=== PATIENT | male | born 1945 | race Caucasian/White ===

== ENCOUNTER 2018-11-29 12:55 | Emergency (ER) | payer SELFPAY ==
[~2018-11-29] VITALS: Ht 165.1 cm; Wt 59.9 kg
[2018-11-29 13:10] VITALS: BP 112/49
--- NOTE | 2018-11-29 13:28 | NUR ---
Patient ambulated to bed 2. RN evaluating patient at bedside.
--- NOTE | 2018-11-29 13:55 | NUR ---
PT TO ED WITH C/O L ARM BRUSING S/P ENOXAPARIN INJECTION X 1 WEEK. DENIES ANY INJURY/TRAUMA. NO ACTIVE BLEEDING NOTED. PT PLACED INTO BED FOR MD FIELD.
[2018-11-29 15:01] LABS: BASOPHILS % (AUTO) 0.6 % (0.0-2.0); EOSINOPHILS # (AUTO) 0.1 K/uL (0-0.4); EOSINOPHILS % (AUTO) 1.8 % (0.0-4.0); HEMOGLOBIN 12.4 g/dL (12.0-18.0); LYMPHOCYTES # (AUTO) 1.1 K/uL (2.0-11.5); MEAN CORPUSCULAR HEMOGLOBIN 27 pg (27-31); MEAN CORPUSCULAR HGB CONC 33 g/dL (33-37); MEAN CORPUSCULAR VOLUME 83.7 fL (80-94); MONOCYTES # (AUTO) 0.5 K/uL (0.8-1.0); MONOCYTES % (AUTO) 9.7 % (1.7-9.3); NEUTROPHILS # (AUTO) 3.8 K/uL (1.8-7.7); NEUTROPHILS % (AUTO) 67.9 % (42.2-75.2); PLATELET COUNT (AUTO) 144 K/uL (140-450); RED BLOOD CELL COUNT(AUTO) 4.53 MIL/uL (4.20-6.10); RED CELL DISTRIBUTION WIDTH 14.9 % (11.6-13.7); WHITE BLOOD COUNT (AUTO) 5.7 K/uL (4.8-10.8)
--- NOTE | 2018-11-29 15:40 | NUR ---
INFORMED PT OF PENDING DC ORDERS. WAITING FOR D/C PAPERWORK FROM .
--- NOTE | 2018-11-29 16:12 | NUR ---
Prasanth marie in [facility] - 11/29/18 at 1613 by CONOR PATIENT LEFT WITHOUT BEING SEEN BY DR. CARTER. NO FURTHER CARE PROVIDED FOR PATIENT.
[2018-11-29 16:13] VITALS: BP 114/58
--- NOTE | 2018-11-29 16:13 | NUR ---
PT LEFT WITHOUT D/C INSTRUCTIONS. V/S STABLE UPON DEPATURE FROM FACILITY. ED MD CARTER NOTIFIED.
== END 2018-11-29 16:13 | disposition home or self-care (01) ==
LOC: MED 12:55
DX: S40.012A Contusion of left shoulder, initial encounter (principal); X58.XXXA Exposure to other specified factors, initial encounter; Y93.89 Activity, other specified; Y92.89 Other specified places as the place of occurrence of the external cause; Y99.8 Other external cause status
CPT/HCPCS: 36415; 85025; 85610; 99283